=== PATIENT | male | born 1950 | race Caucasian/White ===

== ENCOUNTER 2017-10-03 07:46 | Observation (INO) | payer OTHER ==
[2017-10-03] MEDS ORDERED: diphenhydrAMINE 25 MG CAP PO ONE ×2 (07:52→08:08)
[2017-10-03] MEDS ORDERED: ASPIRIN EC 325 MG TAB PO ONE ×2 (07:52→08:08)
[2017-10-03] MEDS ORDERED: DIAZEPAM 5 MG TAB PO ONE (07:52)
[2017-10-03] MEDS ORDERED: FAMOTIDINE 20 MG TAB PO ONE (07:52)
[2017-10-03] MEDS ORDERED: NS 1,000 ML IV ONE (07:52)
--- NOTE | 2017-10-03 08:06 | CPEKG ---
Heart Rate: 68 RR Interval: 882 P-R Interval: 176 QRSD Interval: 94 QT Interval: 368 QTC Interval: 392 P [place]: 54 QRS [place]: -14 T Wave [place]: 82 EKG Severity - ABNORMAL ECG - EKG Impression: SINUS RHYTHM EKG Impression: CONSIDER POSTERIOR INFARCT EKG Impression: NONSPECIFIC T ABNORMALITIES, LATERAL LEADS Electronically Signed By: Bharathi Flynn 03-Oct-2017 23:06:03
[2017-10-03] MEDS ORDERED: fentaNYL 100 MCG/2 ML INJ ONE (08:07)
[2017-10-03] MEDS ORDERED: LIDOCAINE 1% 300 MG/30 ML SDV ONE (08:07)
[2017-10-03] MEDS ORDERED: MIDAZOLAM 2 MG/2 ML VIAL ONE ×2 (08:08→12:42)
[2017-10-03] MEDS ORDERED: IOPAMIDOL (ISOVUE-370) 150 ML BTL IV ONE ×2 (08:08→13:06)
[2017-10-03] MEDS ORDERED: VERAPAMIL 5 MG/2 ML VIAL ONE (08:08)
[2017-10-03] MEDS ORDERED: HEPARIN 10,000 UNIT/10 ML MDV ONE (08:08)
[2017-10-03] MEDS ORDERED: FAMOTIDINE 20 MG TAB ONE (08:08)
[2017-10-03] MEDS ORDERED: DIAZEPAM 5 MG TAB ONE (08:08)
[2017-10-03 08:16] LABS: % IMMATURE GRANULYOCYTES 0.3 % (0.0-1.1); ABSOLUTE IMMATURE GRANULOCYTES 0.03 10^3/uL (0.00-0.10); ADD DIFF? NO; ADD MORPH? NO; ADD SCAN? NO; ATYPICAL LYMPHOCYTE FLAG 0 (0-99); FRAGMENT RBC FLAG 0 (0-99); HEMATOCRIT 42.6 % (40.0-51.0); HEMOGLOBIN 15.6 g/dL (13.7-17.5); LEFT SHIFT FLG 0 (0-99); LIPEMIA HEMOLYSIS FLAG 90 (0-99); MEAN CELL HEMOGLOBIN 33.8 pg (27.9-34.1); MEAN CELL HEMOGLOBIN CONCENTR. 36.6 g/dL (32.4-36.7); MEAN CELL VOLUME 92.4 fL (81.5-99.8); MEAN PLATELET VOLUME 8.9 fL (8.7-11.7); PLATELET CLUMPS FLAG 10 (0-99); PLATELET COUNT 256 10^3/uL (150-400); RED BLOOD CELL COUNT 4.61 10^6/uL (4.40-6.38); RED CELL DISTRIBUTION WIDTH 12.1 % (11.5-15.2)
--- NOTE | 2017-10-03 08:18 | PDGENHP ---
History & Physical Chief Complaint: arm numbness with exercise.... History of Present Illness: 66 year old man with syncope during exercise in early March. He has never fainted in his life. That morning he felt miserable and felt like he had a hangover. He was doing his usual treadmill routine and collapsed with no antecedent symptoms and woke up with the belt of the treadmill burning his back. He went to [facility] and was evaluated by a speech language pathology assistant monitored overnight. He does not recall a stress test. He certainly did not walk on a treadmill, and does not remember a pharmacologic stress test. Since that time with walking uphill, stairs he develops bilateral upper arm discomfort that feels like his arm is "" deep within the arm. He had a treadmill test yesterday that was high risk. His Troy's treadmill score was a -17 out of -15 and the worst EKG stress test I have seen all year. Pertinent Past, Social, Family History: non smoker social drinker no illicit drugs, smoked in college non since. father required a bypass surgery around his current age. The patient has hemochromotosis and as such multiple prior phlebotomies Relevant Physical Exam: The patient is overwight. Normal heart exam except for soft S4. He does not have a loud murmur. Lungs clear, abdomen obese with positive bowel sounds, peripheral edema is present, 1+bilaterally Good and normal Karl's test on right side. Cardiorespiratory Assessment: Please see above as well as sedation plan of care.... His EKG reveals left axis and early R wave progression...abnormal EKG cannot rule out prior posterior VT.
[2017-10-03 08:25] LABS: INR 1.04 (0.83-1.16); PROTIME(PATIENT) 13.8 SEC (12.0-15.0)
--- NOTE | 2017-10-03 08:25 | PDCARST ---
CAR Stress Test Results Type of Stress Test: graded Treadmill Indication: angina Class III Description of Procedure: See report Impression: high risk treadmill, highest risk Conclusion: High risk stress test....
--- NOTE | 2017-10-03 08:26 | PDPROPOC ---
Sedation Plan of Care Sedation Plan of Care: vital signs stable, mental status noted, patient educated of risks, benefits, alternatives, patient can tolerate sedation ASA Classification: ASA 3 Planned drugs: fentanyl, midazolam Mallampati Score: Class 3 Mallampati Reference Image: Patient passed 3-3-2 rule?: No (high risk airway probable sleep apnea...)
[2017-10-03 08:37] LABS: ANION GAP 16 mEq/L (8-16); CALCIUM 10.2 mg/dL (8.5-10.4); CARBON DIOXIDE 21 mEq/l (22-31); CHLORIDE 107 mEq/L (97-110); CHOLESTEROL 147 mg/dL (140-220); CHOLESTEROL/HDL RATIO 2.58 RATIO (1.00-4.97); CREATININE 0.8 mg/dL (0.7-1.3); GLOMERULAR FILTRATION RATE > 60; GLUCOSE 107 mg/dL (70-100); HIGH DENSITY LIPOPROTEIN 57 mg/dL (40-65); LDL/HDL RATIO 0.91 RATIO (1.00-3.64); LOW DENSITY LIPOPROTEIN 52 mg/dL (80-100); MAGNESIUM 1.7 mg/dL (1.6-2.3); NON-HIGH DENSITY LIPOPROTEIN 90 mg/dL (90-129); POTASSIUM 4.2 mEq/L (3.5-5.2); SODIUM 144 mEq/L (134-144); TRIGLYCERIDE 191 mg/dL (40-150); VERY LOW DENSITY LIPOPROTEINS 38 mg/dL (8-25)
[2017-10-03] MEDS ORDERED: NITROGLYCERIN 1,500 MCG/15 ML VIAL MISC ONE (12:57)
[2017-10-03] MEDS ORDERED: CLOPIDOGREL BISULFATE 75 MG TAB ONE (13:12)
[2017-10-03] MEDS ORDERED: CLOPIDOGREL BISULFATE 75 MG TAB PO ONE (16:39)
[2017-10-03] MEDS ORDERED: ATROPINE SULFATE 1 MG/10 ML SYR IVP PRN (16:39)
[2017-10-03] MEDS ORDERED: TEMAZEPAM 15 MG CAP PO PRN (16:39)
[2017-10-03] MEDS ORDERED: OXYCODONE/APAP 5/325 TAB PO PRN (16:39)
[2017-10-03] MEDS ORDERED: HYDROCODONE/APAP 5/325 TAB PO PRN (16:39)
[2017-10-03] MEDS ORDERED: LORazepam 2 MG/ML INJ IVP PRN (16:39)
[2017-10-03] MEDS ORDERED: ONDANSETRON 4 MG/2 ML VIAL IVP PRN (16:39)
[2017-10-03] MEDS ORDERED: NITROGLYCERIN 0.4 MG BTL SL PRN (16:39)
[2017-10-03] MEDS ORDERED: NS 1,000 ML IV SCH (16:45)
[2017-10-03] MEDS ORDERED: ATORVASTATIN CALCIUM 20 MG TAB PO SCH (21:00)
[2017-10-04 05:19] LABS: % IMMATURE GRANULYOCYTES 0.3 % (0.0-1.1); ABSOLUTE IMMATURE GRANULOCYTES 0.02 10^3/uL (0.00-0.10); ADD DIFF? NO; ADD MORPH? NO; ADD SCAN? NO; ATYPICAL LYMPHOCYTE FLAG 0 (0-99); FRAGMENT RBC FLAG 0 (0-99); HEMATOCRIT 39.1 % (40.0-51.0); HEMOGLOBIN 14.3 g/dL (13.7-17.5); LEFT SHIFT FLG 0 (0-99); LIPEMIA HEMOLYSIS FLAG 90 (0-99); MEAN CELL HEMOGLOBIN 34.3 pg (27.9-34.1); MEAN CELL HEMOGLOBIN CONCENTR. 36.6 g/dL (32.4-36.7); MEAN CELL VOLUME 93.8 fL (81.5-99.8); MEAN PLATELET VOLUME 9.3 fL (8.7-11.7); PLATELET CLUMPS FLAG 0 (0-99); PLATELET COUNT 217 10^3/uL (150-400); RED BLOOD CELL COUNT 4.17 10^6/uL (4.40-6.38)
[2017-10-04 05:31] LABS: ALBUMIN 3.6 g/dL (3.5-5.0); ANION GAP 12 mEq/L (8-16); ASPARTATE AMINOTRANSFERASE 24 IU/L (17-59); BILIRUBIN,TOTAL 0.6 mg/dL (0.1-1.4); CARBON DIOXIDE 23 mEq/l (22-31); CHLORIDE 106 mEq/L (97-110); CREATININE 0.8 mg/dL (0.7-1.3); GLOMERULAR FILTRATION RATE > 60; GLUCOSE 95 mg/dL (70-100); LACTATE DEHYDROGENASE 471 IU/L (313-618); MAGNESIUM 1.7 mg/dL (1.6-2.3); SODIUM 141 mEq/L (134-144)
[2017-10-04] MEDS ORDERED: LEVOTHYROXINE 100 MCG TAB PO SCH (06:00)
[2017-10-04 08:34] VITALS: RESP 20
[2017-10-04] MEDS ORDERED: HYDROCHLOROTHIAZIDE 12.5 MG CAP PO SCH (09:00)
[2017-10-04] MEDS ORDERED: VALSARTAN 160 MG TAB PO SCH (09:00)
[2017-10-04] MEDS ORDERED: CLOPIDOGREL BISULFATE 75 MG TAB PO SCH (09:00)
[2017-10-04] MEDS ORDERED: ASPIRIN EC 325 MG TAB PO SCH (09:00)
--- NOTE | 2017-10-04 09:06 | CPEKG ---
Heart Rate: 67 RR Interval: 896 P-R Interval: 176 QRSD Interval: 94 QT Interval: 396 QTC Interval: 418 P [place]: 55 QRS [place]: -9 T Wave [place]: 79 EKG Severity - NORMAL ECG - EKG Impression: SINUS RHYTHM Electronically Signed By: Bharathi Flynn 05-Oct-2017 20:35:13
[2017-10-04] MEDS ORDERED: NS 500 ML IV ONE (10:53)
[2017-10-04 11:15] VITALS: BP 137/80; PULSE 77; TEMP 98.3; O2SAT 96
--- NOTE | 2017-10-04 11:35 | ASMTCMCOM ---
CM Note CM Note Notes: 10/04/2017 Case Management Note Pt admitted for heart work up after an episode of syncope on a treadmill. No Case Management d/c needs identified d/t pt age, activity levels prior to admission and marital status. Case Management d/c poc: Home independent with family support and follow up as directed. Case Management available if needs change. Date Signed: 10/04/2017 11:35 AM Electronically Signed By:Jael Amin RN
--- NOTE | 2017-10-04 13:58 | ASDISCHSUM ---
Discharge Information Plan Status:Home with No Needs Medically Cleared to Leave:10/03/2017 Discharge Date:10/04/2017 01:53 PM CM D/C Disposition:Home, Routine, Self-Care ADT D/C Disposition:Home, Routine, Self-Care Projected Discharge Date:10/04/2017 12:00 AM Transportation at D/C:Family Discharge Delay Reason: Follow-Up Date:10/04/2017 12:00 AM Discharge Slot: Final Diagnosis: Placement Information Patient Contact Information Contact Name:MIGUEL A Relationship: Address:[address] [place] [address] City:[place] Alternate Phone: State/Zip Code:[place] [address] Email: Financial Information Financial Class:Medicare Advantage Plans Primary Plan Desc:[employer] MEDICARE ADV Primary Plan Number:[id number] Secondary Plan Desc: Secondary Plan Number: Assessment Information [facility] CM Progress Note CM Note CM Note Notes: 10/04/2017 Case Management Note Pt admitted for heart work up after an episode of syncope on a treadmill. No Case Management d/c needs identified d/t pt age, activity levels prior to admission and marital status. Case Management d/c poc: Home independent with family support and follow up as directed. Case Management available if needs change. Date Signed: 10/04/2017 11:35 AM Electronically Signed By:Jael Amin RN Intervention Information
--- NOTE | 2017-10-04 15:24 | CPIP ---
[f rep st] INVASIVE CARDIAC PROCEDURE DATE OF PROCEDURE: 10/03/2017 PROCEDURE PERFORMED: 1. Selective coronary angiography. 2. Left heart catheterization. 3. Left ventriculogram. 4. Percutaneous transluminal coronary angioplasty and stent placement of the proximal left anterior descending with the use of a 3.5 x 16 Synergy drug-eluting stent. 5. Percutaneous transluminal coronary angioplasty and stent placement of the mid right coronary basil ry. That lesion was a 99% lesion with DAYANARA-3 flow prior to the stent and it was 0% residual stenosis status post percutaneous transluminal coronary angioplasty and stent placement with DAYANARA-3 flow to t he distal vessel. The right coronary artery, mid right coronary was stented with a 3.5 x 28 Synergy drug-eluting stent with a 75% pre-stent stenosis with DAYANARA-3 flow and 0% residual stenosis status pos t percutaneous transluminal coronary angioplasty and stent placement with DAYANARA-3 flow in the right co ronary artery as well. TR band arteriotomy repair was used. This was a right radial approach. COMPLICATIONS: None. INDICATIONS/APPROPRIATE USE CRITERIA: The patient has CCS class III symptoms of angina with arm pres sure from the shoulder to the elbow bilaterally with exercise, especially with walking up stairs, inc lines, or with sexual activity. The discomfort goes away after he terminates exercise. The patient also had a high-risk stress test with a Troy treadmill score of -15, which is the highest score on th e scale and gives an approximate 5-year mortality of 25%. PROCEDURE IN DETAIL: After informed consent was obtained, n.p.o. status was confirmed, the region of the right wrist was cleaned, prepped, and draped in sterile fashion. A plethysmography and trace as sisted Karl test was performed, documenting dual arterial supply to the right index finger. The pat ient then underwent the previously mentioned diagnostic procedures with the use of JR4 and JL4 farrell ry catheters, as well as a 5-American pigtail catheter. Standard wire exchange technique was utilized for all catheter exchanges. The right coronary artery is codominant giving rise to the posterior descending as well as a posterol ateral ventricular branch. There is a lesion distal to the RV branch which is relatively long and ec centric and on quantitative computer analysis or QCA of the blood vessel was noted. There was 75% st enosis of the right coronary artery in the intervening segment between the RV branch and the acute ma rginal. The left main coronary lumen is approximately 8 mm in size and bifurcates into an LAD and ci rcumflex system. The LAD has a proximal 99% obstruction of the blood vessel. On cinefluoroscopy, th ere is evidence of calcification in the wall of the blood vessel consistent with underlying atheroscl erosis. The circumflex is a codominant vessel giving rise to an obtuse marginal branch as well as to a 2nd posterior descending artery that travels in the posterior interventricular groove as well. Th e LAD, as I mentioned, arises in its usual location. There is a diagonal branch downstream from the major lesion within the LAD proper, which has a 40% to 50% ostial stenosis at its takeoff from the LA D. The patient underwent left heart catheterization demonstrating elevated left ventricular end-fall tolic pressure measured at 17 mmHg. The patient underwent left ventriculogram in the [place] projection, demonstrating preserved and hypercontractile left ventricular systolic function. Ejection fraction is noted to be 65%. There were 3 sinuses of Valsalva most consistent with a trileaflet aortic valve. Visualized portion of the thoracic aorta is normal in caliber and does not reveal a santhosh aneurysm or dissection. The ostial portion of the arch vessels also appear to be widely patent on this study. There is no evidence of significant mitral regurgitation or aortic stenosis upon pullback across th e aortic valve. We turned our attention to the left anterior descending lesion. Ultimately, a 6-American JL 3.5 guidin g catheter with a short tip was used for guide catheter support. A 0.014 Intuition wire was advanced across the lesion in question. The vessel was primarily ballooned with a 3.0 x 15 Emerge balloon wi th approximately 40% residual stenosis status post PTCA of the vessel. A 3.5 x [address] ent was then deployed in the proximal and near ostial LAD at a maximum pressure of 14 atmospheres wit h excellent angiographic results and 0% residual stenosis status post PTCA and stent placement. Ther e was what appeared to be some plaque shift in the vessel and therefore with approximately 5% residua l at the distal tip of the stent and therefore an NC Quantum balloon was used to post dilate the bloo d vessel with excellent angiographic results. There was some possible spasm of the origin of the 1st diagonal which appeared to have an 80% obstruction. This did improve with intracoronary nitroglycer in given at a total of 400 mg. Again, the pre-obstruction lesion was 99% with 0% residual stenosis status post PTCA and stent placem ent. There was DAYANARA-3 flow prior to and following the procedure. The right coronary artery had a 73 % stenosis by QCA. We used a 6-American JR4 guiding catheter for guide catheter support. The same Int uition wire was advanced across the lesion in the mid right coronary artery and the vessel was primar odalys stented with a 3.5 x 28 Synergy drug-eluting stent inflated to maximum pressure of 14 atmospheres with 0% residual stenosis status post PTCA and stent placement. FINAL IMPRESSION: The patient tolerated the procedure well without immediate complications. Will re turn to post cath recovery unit where a stat postoperative EKG will be obtained. The patient will be admitted overnight for observation to observe his rhythm as well as to observe the wrist arteriotomy site. The patient will need to be treated for atherosclerosis to achieve a non HDL cholesterol less than 100 mg/dL. The patient will also require lifestyle modification with daily moderate routine ca rdiovascular exercise to achieve a heart rate of 70% to 85% of his personal maximum for at least 40 m inutes most days of the week. Also need to adopt a diet which is low in the processed food, simple s ugars, and saturated fats, especially those from animal sources. It would be better to have fat-base d sources from plants as opposed to animals in my view. /[id number]/MODL
--- NOTE | 2017-10-05 03:46 | GDS ---
[f rep st] DISCHARGE SUMMARY ADMIT DIAGNOSES: 1. Chest pain. 2. Failed high risk stress test. 3. Planned cardiac angiogram. DISCHARGE DIAGNOSES: 1. Status post cardiac angiogram with placement of left anterior descending and right coronary arter y drug-eluting stent. 2. Hyperlipidemia. COURSE OF HOSPITALIZATION: This gentleman was seen in clinic by Dr. Bharathi Flynn with complaints of chest discomfort with arm pressure radiating into the shoulders and elbows bilaterally with exercise, especially noted with walking up stairs or inclines and with sexual activity. With rest, the discom fort subsides. He did have a stress test, which he failed. It was recommended that he proceed with cardiac angiogram and possible stent placement. He was taken to the mechanical shop laborer by Dr. Bharathi Flynn on 10/03/2017, where he did find a 75% stenosis of the right coronary artery and proximal 99% obstructio n of the LAD. He was able to place drug-eluting stents successfully with no complications. He was t hen taken to PCU for overnight observation where he has done well. He has no chest pain or shortness of breath. He has been up ambulating and feels much better than he has in some time. At this time, he currently is stable for discharge. DISCHARGE MEDICATIONS: He will go home on aspirin enteric-coated 325 mg tablet daily, Plavix 75 mg d aily, hydrochlorothiazide 12.5 mg daily, valsartan/amlodipine 10/320 mg tablets 1 tablet daily, vitam in B12 at 1000 mcg daily, Synthroid 100 mcg daily, Lipitor 20 mg at bedtime, vitamin D3 at 5000 units daily, glucosamine chondroitin 1 daily. ALLERGIES: He has no known allergies. PHYSICAL EXAMINATION: VITAL SIGNS: On day of discharge, blood pressure 137/80, heart rate 77 and re gular, temperature 36.8. EKG shows a normal sinus rhythm. CARDIOVASCULAR: Heart rate regular. No murmurs, rubs, or gallops. RESPIRATORY: Lungs sounds are clear to auscultation. No wheezes, rales, or rhonchi. EXTREMITIES: No peripheral edema. Pulses 2+ bilaterally. Right wrist cast access sit e is intact. Bilateral pulses are equal. Good capillary refill in his fingers with good sensation. DISCHARGE PLAN: He will follow up with Dr. Flynn in 10 days. Wrist site precautions were reviewed verbally and written instructions given. No heavy lifting for 4 8 hours greater than 10 pounds. No submerging wrist into water for 2 days. Keep site clean and dry. No dressing needed. Recommended to attend cardiac rehab in [place]. Diet recommendations for low fat and low processed foods is recommended to treat his lipids to an HDL cholesterol less than 100 mg/dL. Lifestyle modifications of daily moderate cardiovascular exercise with heart rates of 70% to 85% of h is personal maximal rate for 40 minutes most days of the week. Diet recommendation of low processed food, simple sugars, and saturated fats, especially from animal sources. Best to have fat-based sour ananda from plants as opposed to animals. He will be referred to cardiac rehab. At this time, he currently is stable for discharge. /[id number]/MODL
== END 2017-10-04 13:53 | disposition home or self-care (01) ==
LOC: FCATH 07:46 → F2W 13:39
PROVIDERS: ADMIT Internal Medicine Cardiovascular Disease; ATTEND Internal Medicine Cardiovascular Disease
PROC: B2111ZZ Fluoroscopy of Multiple Coronary Arteries using Low Osmolar Contrast (ICD-10-PCS; principal; 2017-10-03)
PROC: B2151ZZ Fluoroscopy of Left Heart using Low Osmolar Contrast (ICD-10-PCS; principal; 2017-10-03)
PROC: 4A023N7 Measurement of Cardiac Sampling and Pressure, Left Heart, Percutaneous Approach (ICD-10-PCS; principal; 2017-10-03)
DX: R07.9 Chest pain, unspecified (principal); R94.39 Abnormal result of other cardiovascular function study
CPT/HCPCS: 93005; 93458; C1725; C1769; C1874; C1887; C9600; G0378; J1644; J2250; J3010; Q9967